=== PATIENT | female | born 1950 | race Caucasian/White ===

== ENCOUNTER → 2021-11-08 | Outpatient (CLI) | payer MEDICARE ==
[2021-11-08 22:52] LABS: ALT 7 U/L (8-44); AST 21 U/L (13-35); African American GFR (CKD) 57.6 (60.0-200.0); Albumin/Globulin Ratio 1.34 (1.60-3.17); Alkaline Phosphatase 93 U/L (41-126); BUN/Creat Ratio 21.34 Ratio (12.00-20.00); Blood Urea Nitrogen 23.9 mg/dL (9.0-27.0); Carbon Dioxide 23.4 mmol/L (20.0-27.5); Chloride 106 mmol/L (96-109); Glucose 97 mg/dL (70-110); Non-African American GFR(CKD) 49.7 (60.0-200.0); Potassium 4.5 mmol/L (3.5-5.5); Sodium 140 mmol/L (135-145); Total Bilirubin <0.15 mg/dL (0.30-1.20)
== END | disposition home or self-care (01) ==
LOC: LABWHC1 09:24
PROVIDERS: ATTEND Internal Medicine Interventional Cardiology
DX: I10 Essential (primary) hypertension (principal)
CPT/HCPCS: 36415; 80053

== ENCOUNTER 2022-02-06 14:24 | Inpatient (IN) | payer MEDICARE, OTHER ==
--- NOTE | 2022-02-06 16:11 | ED ---
General Adult HPI - General Chief complaint: Recheck/Abnormal Lab/Rx Stated complaint: Irregular labs-Sent by PCP Time Seen by Provider: 02/06/22 14:35 Source: patient, RN notes reviewed, old records reviewed Mode of arrival: ambulatory Limitations: no limitations - History of Present Illness Initial comments: 71-year-old female presenting with abnormal outpatient lab. Patient was found by primary care physician to have a hemoglobin of 6.2. She states she has dealt with some anemia in the past. She denies bright red rectal bleeding or melena. She states she had one episode of diarrhea yesterday. She is not currently on any antiplatelet or anticoagulation medications. She states she does have some mild exertional dyspnea and states that she fatigues easily. She has required blood transfusion in the past. - Related Data Home Medications Medication Instructions Recorded Confirmed Aspirin EC [Ecotrin Low Dose] 81 mg PO HS 02/06/22 02/06/22 Ferrous Sulfate [Feosol] 162.5 mg PO SUTUTHSA@2100 02/06/22 02/06/22 Fluticasone Nasal [place] [Flonase 1 - 2 spr EA NOSTRIL BID PRN 02/06/22 02/06/22 Nasal [place]] Pantoprazole Sodium [Protonix] 40 mg PO HS PRN 02/06/22 02/06/22 Rosuvastatin Calcium [Crestor] 5 mg PO HS 02/06/22 02/06/22 Spironolactone [Aldactone] 12.5 mg PO MOWEFR 02/06/22 02/06/22 Valsartan [Diovan] 40 mg PO BID 02/06/22 02/06/22 carvediloL [Coreg] 6.25 mg PO BID 02/06/22 02/06/22 Allergies Allergy/AdvReac Type Severity Reaction Status Date / Time lorazepam [From Ativan] Allergy Anaphylaxis Verified 02/06/22 16:16 Review of Systems ROS Statement: Those systems with pertinent positive or pertinent negative responses have been documented in the HPI. ROS Other: All systems not noted in ROS Statement are negative. Past Medical History Past Medical History: Coronary Artery Disease (CAD), Hypertension Additional Past Medical History / Comment(s): Anemia History of Any Multi-Drug Resistant Organisms: None Reported Additional Past Surgical History / Comment(s): Dual Pacemaker Past Psychological History: No Psychological Hx Reported Smoking Status: Never smoker Past Alcohol Use History: Occasional Past Drug Use History: None Reported General Exam Limitations: no limitations General appearance: alert, in no apparent distress Head exam: Present: atraumatic, normocephalic Eye exam: Present: normal appearance, PERRL ENT exam: Present: normal exam Neck exam: Present: normal inspection. Absent: tenderness, meningismus Respiratory exam: Present: normal lung sounds bilaterally. Absent: respiratory distress, wheezes Cardiovascular Exam: Present: regular rate, normal rhythm GI/Abdominal exam: Present: soft. Absent: distended, tenderness, guarding Extremities exam: Present: normal inspection, normal capillary refill. Absent: pedal edema Neurological exam: Present: alert, oriented X3, CN II-XII intact. Absent: motor sensory deficit Psychiatric exam: Present: normal affect, normal mood Skin exam: Present: warm, pallor Course Vital Signs 02/06/22 14:28 Temperature 97.6 F Pulse Rate 91 Respiratory 20 Rate Blood Pressure 149/67 O2 Sat by Pulse 97 Oximetry - Reevaluation(s) Reevaluation #1: 02/06/22 17:30 Patient refuses rectal exam, denies bright red rectal bleeding or melena EKG Findings - EKG Comments: EKG Findings:: EKG: Ventricular paced rhythm rate of 83, with PVC NH interval is 167, QRS duration 99, QTC 419 Medical Decision Making - Medical Decision Making 71-year-old female with chief complaint of anemia found on outpatient lab testing. This was 6. The repeat is 5.0. 2 units for transfusion are ordered. Patient's hemodynamics are stable. She denies current anticoagulation. She denies rectal bleeding but also declines rectal exam. She will be observed overnight with repeat laboratory testing at 11 PM and 6 AM. Case discussed with [facility] physician group - Lab Data Result diagrams: 02/06/22 16:51 02/06/22 16:51 Lab Results 02/06/22 02/06/22 02/06/22 Range/Units 16:51 16:51 16:51 WBC 13.0 H (3.8-10.6) k/uL RBC 2.14 L (3.80-5.40) m/uL Hgb 5.0 L* (11.4-16.0) gm/dL Hct 17.2 L* (34.0-46.0) % MCV 80.5 (80.0-100.0) fL MCH 23.4 L (25.0-35.0) pg MCHC 29.1 L (31.0-37.0) g/dL RDW 16.6 H (11.5-15.5) % Plt Count 283 (150-450) k/uL MPV 7.7 Neutrophils % 83 % Lymphocytes % 12 % Monocytes % 3 % Eosinophils % 0 % Basophils % 0 % Neutrophils # 10.8 H (1.3-7.7) k/uL Lymphocytes # 1.6 (1.0-4.8) k/uL Monocytes # 0.4 (0-1.0) k/uL Eosinophils # 0.0 (0-0.7) k/uL Basophils # 0.0 (0-0.2) k/uL Hypochromasia Marked Anisocytosis Slight PT 10.5 (9.0-12.0) sec INR 1.0 (<1.2) APTT 20.5 L (22.0-30.0) sec Sodium 137 (137-145) mmol/L Potassium 4.6 (3.5-5.1) mmol/L Chloride 103 (98-107) mmol/L Carbon Dioxide 22 (22-30) mmol/L Anion Gap 12 mmol/L BUN 56 H (7-17) mg/dL Creatinine 1.43 H (0.52-1.04) mg/dL Est GFR (CKD-EPI)AfAm 43 (>60 ml/min/1.73 sqM) Est GFR (CKD-EPI)NonAf 37 (>60 ml/min/1.73 sqM) Glucose 110 H (74-99) mg/dL Calcium 9.7 (8.4-10.2) mg/dL Magnesium 2.0 (1.6-2.3) mg/dL Total Bilirubin 0.2 (0.2-1.3) mg/dL AST 27 (14-36) U/L ALT 10 (4-34) U/L Alkaline Phosphatase 72 (38-126) U/L Total Protein 6.7 (6.3-8.2) g/dL Albumin 4.0 (3.5-5.0) g/dL Blood Type Recheck Bld Type Recheck Status Spec Expiration Date 02/06/22 Range/Units 17:13 WBC (3.8-10.6) k/uL RBC (3.80-5.40) m/uL Hgb (11.4-16.0) gm/dL Hct (34.0-46.0) % MCV (80.0-100.0) fL MCH (25.0-35.0) pg MCHC (31.0-37.0) g/dL RDW (11.5-15.5) % Plt Count (150-450) k/uL MPV Neutrophils % % Lymphocytes % % Monocytes % % Eosinophils % % Basophils % % Neutrophils # (1.3-7.7) k/uL Lymphocytes # (1.0-4.8) k/uL Monocytes # (0-1.0) k/uL Eosinophils # (0-0.7) k/uL Basophils # (0-0.2) k/uL Hypochromasia Anisocytosis PT (9.0-12.0) sec INR (<1.2) APTT (22.0-30.0) sec Sodium (137-145) mmol/L Potassium (3.5-5.1) mmol/L Chloride (98-107) mmol/L Carbon Dioxide (22-30) mmol/L Anion Gap mmol/L BUN (7-17) mg/dL Creatinine (0.52-1.04) mg/dL Est GFR (CKD-EPI)AfAm (>60 ml/min/1.73 sqM) Est GFR (CKD-EPI)NonAf (>60 ml/min/1.73 sqM) Glucose (74-99) mg/dL Calcium (8.4-10.2) mg/dL Magnesium (1.6-2.3) mg/dL Total Bilirubin (0.2-1.3) mg/dL AST (14-36) U/L ALT (4-34) U/L Alkaline Phosphatase (38-126) U/L Total Protein (6.3-8.2) g/dL Albumin (3.5-5.0) g/dL Blood Type Recheck No Previous Record Bld Type Recheck Status CABO Indicated Spec Expiration Date 02/09/20222312 Critical Care Time Critical Care Time: Yes Total Critical Care Time: 35 Disposition Clinical Impression: Symptomatic anemia Disposition: ADMITTED IP TO THIS [facility] Condition: Stable Is patient prescribed a controlled substance at d/c from ED?: No Referrals: Alber Amor MD [Primary Care Provider] - 1-2 days Time of Disposition: 17:32
[2022-02-06 16:58] LABS: Anisocytosis Slight; Basophils % (A) 0 %; Eosinophils % (A) 0 %; Hypochromasia Marked; Lymphocytes # (A) 1.6 k/uL (1.0-4.8); Lymphocytes % (A) 12 %; MCH 23.4 pg (25.0-35.0); MCHC 29.1 g/dL (31.0-37.0); MCV 80.5 fL (80.0-100.0); Mean Platelet Volume 7.7; Monocytes # (A) 0.4 k/uL (0-1.0); Monocytes % (A) 3 %; Neutrophils # (A) 10.8 k/uL (1.3-7.7); Neutrophils % (A) 83 %; Platelet Count 283 k/uL (150-450); RBC 2.14 m/uL (3.80-5.40); RDW 16.6 % (11.5-15.5)
[2022-02-06 17:06] LABS: Calcium 9.7 mg/dL (8.4-10.2); HCT 17.2 % (34.0-46.0); Potassium 4.6 mmol/L (3.5-5.1); Total Bilirubin 0.2 mg/dL (0.2-1.3); Total Protein 6.7 g/dL (6.3-8.2)
[2022-02-06 17:12] LABS: Prothrombin Time 10.5 sec (9.0-12.0)
[2022-02-06 17:14] LABS: Partial Thromboplastin Time 20.5 sec (22.0-30.0)
[2022-02-06] MEDS ORDERED: ACETAMINOPHEN TAB 325 MG TAB PO PRN (17:29)
[2022-02-06] MEDS ORDERED: NALOXONE 0.4 MG/ML 1 ML VIAL IV PRN (17:29)
[2022-02-07] MEDS ORDERED: PANTOPRAZOLE 40 MG/10 ML VIAL IVP ONE (03:04)
--- NOTE | 2022-02-07 03:08 | P.HPIM ---
History of Present Illness H&P Date: 02/06/22 The patient is a 71-year-old female with a PMH of diverticulosis, status post AICD placement (unknown reason) hypertension, and hyperlipidemia who was sent to the emergency room after laboratory evaluation revealed a hemoglobin of 6.2. History supplemented by the patient's daughter at the bedside. The patient reports that March 2021, she was hospitalized at [facility] for severe anemia which was diagnosed during a preop evaluation for an AICD placement. The patient had subsequently undergone an EGD and colonoscopy with no source of bleeding identified. The patient has since been following up with GI and reports that she had another routine set of blood work this past Wednesday, for which she was informed that her hemoglobin was 6.2. The patient denied noticing bright red blood per rectum or black tarry stools. She also denied abdominal pain, nausea, vomiting. Reports that she feels that her baseline and denied experiencing weakness or fatigue. Patient reports taking oral iron for possible iron deficiency. She reports that the prior colonoscopy did reveal diverticulosis which was suspected to be the likely culprit. Patient denied using NSAIDs. She denied experiencing chest discomfort or shortness of breath. She reports feeling at her baseline at the time of interview. Laboratory evaluation in the emergency room was remarkable for hemoglobin of 5.0, MCV 80.5, [place] count 13.0, BUN 56, and creatinine 1.43. Review of systems: Pertinent positives and negatives as discussed in HPI, a complete review of systems was performed and all other systems are negative. Physical examination: General: non toxic, no distress, appears at stated age, normal weight Derm: no unusual rashes/lesions, warm Head: atraumatic, normocephalic, symmetric Eyes: EOMI, no lid lag, anicteric sclera, pupils equal round reactive to light ENT: Nose and ears atraumatic Neck: No cervical lymphadenopathy, trachea midline, supple Mouth: no lip lesion, mucus membranes moist Cardiovascular: S1S2 reg, no murmur, positive dorsalis pedis pulse bilateral, no edema Lungs: CTA bilateral, no rhonchi, no rales, no accessory muscle use Abdominal: soft, nontender to palpation, no guarding Ext: muscle strength 5 out of 5 in all 4 extremities grossly, no gross muscle atrophy, no contractures, Neuro: CN II-XI grossly intact, no gross focal neuro deficits Psych: Alert, oriented, appropriate affect Assessment/plan Severe anemia, suspected acute blood loss -Status post 2 units of PRBC cessation -FOBT ordered -Continue to monitor CBC -Surgery consulted for EGD/colonoscopy -Continue IV Protonix Kidney injury, acute versus chronic -Continue IV fluids and monitor for now Chronic conditions: Hypertension, hyperlipidemia -Hold off on antihypertensives in setting of borderline BP -Continue the remaining home medications DVT prophylaxis -IPCDs The patient is admitted with an anticipated greater than 2 midnight stay for evaluation of GIB CODE STATUS: Full Code Discussed with: Patient Anticipated discharge date: 2-[address]: Home Past Medical History Past Medical History: Coronary Artery Disease (CAD), Hypertension Additional Past Medical History / Comment(s): Anemia History of Any Multi-Drug Resistant Organisms: None Reported Additional Past Surgical History / Comment(s): Dual Pacemaker Past Psychological History: No Psychological Hx Reported Smoking Status: Never smoker Past Alcohol Use History: Occasional Past Drug Use History: None Reported - Past Family History Mother Family Medical History: Hypertension Medications and Allergies Home Medications Medication Instructions Recorded Confirmed Type Aspirin EC [Ecotrin Low Dose] 81 mg PO HS 02/06/22 02/06/22 History Ferrous Sulfate [Feosol] 162.5 mg PO SUTUTHSA@2100 02/06/22 02/06/22 History Fluticasone Nasal [place] [Flonase 1 - 2 spr EA NOSTRIL BID PRN 02/06/22 02/06/22 History Nasal [place]] Pantoprazole Sodium [Protonix] 40 mg PO HS PRN 02/06/22 02/06/22 History Rosuvastatin Calcium [Crestor] 5 mg PO HS 02/06/22 02/06/22 History Spironolactone [Aldactone] 12.5 mg PO MOWEFR 02/06/22 02/06/22 History Valsartan [Diovan] 40 mg PO BID 02/06/22 02/06/22 History carvediloL [Coreg] 6.25 mg PO BID 02/06/22 02/06/22 History Allergies Allergy/AdvReac Type Severity Reaction Status Date / Time lorazepam [From Ativan] Allergy Anaphylaxis Verified 02/06/22 16:16 Physical Exam Vitals: Vital Signs Temp Pulse Resp BP Pulse Ox 02/06/22 23:00 87.3 F L 85 16 174/80 99 08/12/22 22:45 98.5 F 81 16 179/75 99 02/06/22 21:10 98.9 F 78 16 157/55 99 02/06/22 20:05 98.6 F 89 18 134/49 97 02/06/22 19:35 98.5 F 82 16 132/65 98 02/06/22 19:20 98.8 F 87 18 163/66 97 02/06/22 19:05 98.6 F 89 16 153/58 99 02/06/22 18:45 98.7 F 79 16 154/70 02/06/22 18:35 98.3 F 77 18 177/63 98 02/06/22 14:28 97.6 F 91 20 149/67 97 Intake and Output 02/06/22 02/06/22 02/07/22 14:59 22:59 06:59 Intake Total 310 Balance 310 Intake: Blood Product 310 Rc As-1 Unit 0 [id number] Rc As-1 Unit 310 [id number] Other: Weight 47.627 kg Results CBC & Chem 7: 02/06/22 16:51 02/06/22 16:51 Labs: Abnormal Lab Results - Last 24 Hours (Table) 02/06/22 02/06/22 02/06/22 Range/Units 16:51 16:51 16:51 WBC 13.0 H (3.8-10.6) k/uL RBC 2.14 L (3.80-5.40) m/uL Hgb 5.0 L* (11.4-16.0) gm/dL Hct 17.2 L* (34.0-46.0) % MCH 23.4 L (25.0-35.0) pg MCHC 29.1 L (31.0-37.0) g/dL RDW 16.6 H (11.5-15.5) % Neutrophils # 10.8 H (1.3-7.7) k/uL APTT 20.5 L (22.0-30.0) sec BUN 56 H (7-17) mg/dL Creatinine 1.43 H (0.52-1.04) mg/dL Glucose 110 H (74-99) mg/dL Crossmatch 02/06/22 Range/Units 17:13 WBC (3.8-10.6) k/uL RBC (3.80-5.40) m/uL Hgb (11.4-16.0) gm/dL Hct (34.0-46.0) % MCH (25.0-35.0) pg MCHC (31.0-37.0) g/dL RDW (11.5-15.5) % Neutrophils # (1.3-7.7) k/uL APTT (22.0-30.0) sec BUN (7-17) mg/dL Creatinine (0.52-1.04) mg/dL Glucose (74-99) mg/dL Crossmatch See Detail
[2022-02-07 04:32] LABS: African American GFR (CKD) 50 (>60 ml/min/1.73 sqM); Anion Gap 10 mmol/L; Blood Urea Nitrogen 47 mg/dL (7-17); Calcium 9.1 mg/dL (8.4-10.2); Carbon Dioxide 22 mmol/L (22-30); Chloride 107 mmol/L (98-107); Glucose 91 mg/dL (74-99); Non-African American GFR(CKD) 43 (>60 ml/min/1.73 sqM); Potassium 4.4 mmol/L (3.5-5.1); Sodium 139 mmol/L (137-145)
[2022-02-07 07:03] LABS: Anisocytosis Slight; Basophils % (A) 0 %; Eosinophils # (A) 0.2 k/uL (0-0.7); Eosinophils % (A) 2 %; HCT 28.9 % (34.0-46.0); Hypochromasia Marked; Lymphocytes # (A) 1.2 k/uL (1.0-4.8); Lymphocytes % (A) 11 %; MCH 27.1 pg (25.0-35.0); MCHC 31.9 g/dL (31.0-37.0); MCV 85.1 fL (80.0-100.0); Mean Platelet Volume 8.2; Monocytes # (A) 0.6 k/uL (0-1.0); Monocytes % (A) 5 %; Neutrophils # (A) 9.3 k/uL (1.3-7.7); Neutrophils % (A) 82 %; Platelet Count 203 k/uL (150-450); Poikilocytosis Moderate; RDW 16.3 % (11.5-15.5); WBC 11.5 k/uL (3.8-10.6)
[2022-02-07 07:12] LABS: HGB 9.2 gm/dL (11.4-16.0)
[2022-02-07] MEDS: SODIUM CHLORIDE 0.9% 1,000 ML IV SCH ×2 (08:00→15:13)
[2022-02-07] MEDS: carvediloL 6.25 MG TAB PO SCH ×2 (08:25→20:19)
--- NOTE | 2022-02-07 13:10 | P.PN ---
Progress Note - Text Progress Note Date: 02/07/22 Patient was seen and examined. No acute events overnight. Hemoglobin improved from 5-9.2 units PRBC. Patient denies any chest shortness breath or palpitations. No nausea or vomiting. No fever or chills. General: [non toxic], [no distress], [appears at stated age] Derm: [warm], [dry] Head: [atraumatic], [normocephalic], [symmetric] Eyes: [EOMI], [no lid lag], [anicteric sclera] Mouth: [no lip lesion], [mucus membranes moist] Cardiovascular: [S1S2 reg], [no murmur] Lungs: [CTA bilateral], [no rhonchi, no rales] , [no accessory muscle use] Ext: [no gross muscle atrophy], [no edema], [no contractures] Neuro: [no focal neuro deficits] Psych: [Alert], [oriented], [appropriate affect] #Severe anemia, normocytic #Leukocytosis #Acute kidney injury Chronic conditions: Hypertension, dyslipidemia Patient's hemoglobin has improved after 2 units PRBC. We'll order iron studies, B12 and folic acid. She had recently had EGD and colonoscopy which was negative for acute bleed. Gen. surgery has been consulted. Stool for occult blood ordered. Will consult hematology for further recommendations. Leukocytosis of unknown origin. Plans to repeat CBC tomorrow morning. No signs of active infection. Continue IV hydration with normal sinus 75 mL per hour. Avoid nephrotoxins. Repeat BMP tomorrow morning. Continue Coreg. Continue Lipitor. DVT prophylaxis: [SCD boots] Discussed with: [Patient and family] Anticipated discharge: [1-2 days] Anticipated discharge place: [Home] Anticipated DC home tomorrow if hemoglobin remained stable. Since GI workup unrevealing, patient would need bone marrow biopsy in the future if willing to evaluate for anemia.
[2022-02-07 14:33] LABS: Reticulocyte % 2.5 % (0.5-2.0)
[2022-02-07 15:58] LABS: LDH 799 U/L (313-618)
--- NOTE | 2022-02-07 16:11 | P.GSCN ---
History of Present Illness Consult date: 02/07/22 History of present illness: REASON FOR CONSULTATION: Anemia HISTORY OF PRESENT ILLNESS: The patient is a 71 year old female who presented to the hospital with anemia hemoglobin 5.0. Patient was given 2 units blood transfusion. Patient's daughter bedside gives additional history. Her daughter describes that her mother had similar episode 8 months ago at a different hospital. The patient was in the intensive care unit and intubated at that time. She had unexplained anemia and was given blood transfusions. Her daughter also reports that patient had a colonoscopy EGD and additional workup which were negative. Once discharged, the patient was being monitored by her primary care doctor as her hemoglobin had improved to over 11.0. Patient had recently seen her vice president payer and was given a clean bill of health less than 1 month ago. Patient had followed up with her primary care provider who repeated her blood work where hemoglobin was less than 7.0. She presented to the hospital for recheck where hemoglobin was 5.0. As a result, patient was admitte d and given blood. Patient otherwise is independent. Denies any abdominal pain. Denies any blood in stools. Denies any hematemesis or signs of bleeding. Patient and her daughters have recently moved to the area. General surgery is consulted for anemia. PAST MEDICAL HISTORY: See list and reviewed PAST SURGICAL HISTORY: See list and reviewed MEDICATIONS: See list and reviewed ALLERGIES: See list and reviewed SOCIAL HISTORY: See list and reviewed FAMILY HISTORY: See list and reviewed REVIEW OF ORGAN SYSTEMS: CONSTITUTIONAL: No fevers or chills. No recent weight loss. EYES: Denies any trouble with vision. No glasses. HEENT: No difficulties with hearing. No nosebleeds. No difficulty swallowing. Has lower dentures. RESPIRATORY: Has chronic obstructive pulmonary disease. CARDIOVASCULAR: Has hypertensive heart disease. Has hyperlipidemia. Has coronary artery disease. History of myocardial infarction. Recent pacemaker placement less than 1 year ago. GASTROINTESTINAL: Has anemia of unexplained origin. Has gastroesophageal reflux disease. GENITOURINARY: Denies any blood in urine or increased urinary frequency. NEUROLOGICAL: Recent stroke less than 1 year ago with subsequent hospitalization and intubation. MUSCULOSKELETAL: Denies any back pain, stiffness or joint arthritis. SKIN: History of melanoma. PSYCHIATRIC: Denies current depression or suicidal thoughts. ENDOCRINE: Denies current thyroid disorders. Denies any blood sugar glucose intolerance. HEME/LYMPHATIC: Denies any lumps and bumps around the neck. No recent deep venous thrombosis. Prior blood transfusions. ALLERGY/IMMUNOLOGY: No immunoglobulin therapy. No immune deficiencies. BREAST: Denies current breast lumps, pain or nipple discharge. PHYSICAL EXAM: VITALS: Reviewed CONSTITUTIONAL: Well developed and in no acute distress. EYES: Conjuctivae without sclera icterus. Extraocular movements grossly intact. HEAD, EARS, NOSE, THROAT: Moist buccal mucosa. Head is atraumatic, normocep halic. Hears conversational speech. No nasal drainage. NECK: Supple. No JV distention. No thyroidomegaly. RESPIRATORY: Non-labored respirations and equal bilateral excursions. No gross wheezes. CARDIOVASCULAR: Palpable 2+ radial pulses. ABDOMEN: Nontender. LYMPH: No gross neck lymphadenopathy. MUSCULOSKELETAL: Nail and fingers with good capillary refill. SKIN: Warm and well perfused with good skin turgor. NEUROLOGIC: Cranial nerves II through XII grossly intact. No focal or lateralizing signs. PSYCH: Appropriate affect. Alert and oriented to person, place and time. Displays appropriate insight. CLINCAL LABS: Reviewed. Hemoglobin on admission 5.0 up to 9.2 after 2 units blood transfusion. WBC elevated at 13.2 on admission. Creatinine elevated 1.43 down to 1.23. No current imaging her radiology reports available. ASSESSMENT: 1. Anemia of unexplained origin 2. Status post blood transfusion 3. Pacemaker placement 4. Ischemic cardiomyopathy 5. History of recent stroke 6. Hypertensive heart disease or chronic renal insufficiency, stage III 7. Leukocytosis 8. Iron deficiency anemia PLAN: 1. Patient has recurrent moderate anemia requiring blood transfusions of unexplained etiology. At this time, patient does not wish any invasive diagnostic studies. In the interim, recommend CT of the abdomen and pelvis for malignancy or cause of anemia. 2. May need repeat upper and lower endoscopy due to recurrence of her anemia. 3. Hematology consult pending. 4. Diet as tolerated. 5. May need release of medical records from prior hospitalization 6. Overall, patient presents with life-threatening anemia of unclear etiology and will need further workup. ADVANCE DIRECTIVE: Thank you for this kind consultation. Past Medical History Past Medical History: Coronary Artery Disease (CAD), Cancer, COPD, CVA/TIA, Hype rtension, Myocardial Infarction (CT) Additional Past Medical History / Comment(s): Anemia, Orthostatic Hypotension, Hx Melanoma, Small kidney size Last Myocardial Infarction Date:: 06/28/2016 History of Any Multi-Drug Resistant Organisms: None Reported Past Surgical History: Cholecystectomy, Hysterectomy Additional Past Surgical History / Comment(s): Dual Pacemaker, two child births, eyelid surgery, mole removal on back Past Anesthesia/Blood Transfusion Reactions: No Reported Reaction Past Psychological History: No Psychological Hx Reported Smoking Status: Former smoker Past Alcohol Use History: Occasional Past Drug Use History: None Reported - Past Family History Mother Family Medical History: Hypertension Additional Family Medical History / Comment(s): patient adopted and does not know medical hx Medications and Allergies Home Medications Medication Instructions Recorded Confirmed Type Aspirin EC [Ecotrin Low Dose] 81 mg PO HS 02/06/22 02/06/22 History Ferrous Sulfate [Feosol] 162.5 mg PO SUTUTHSA@2100 02/06/22 02/06/22 History Fluticasone Nasal [place] [Flonase 1 - 2 spr EA NOSTRIL BID PRN 02/06/22 02/06/22 History Nasal [place]] Pantoprazole Sodium [Protonix] 40 mg PO HS PRN 02/06/22 02/06/22 History Rosuvastatin Calcium [Crestor] 5 mg PO HS 02/06/22 02/06/22 History Spironolactone [Aldactone] 12.5 mg PO MOWEFR 02/06/22 02/06/22 History Valsartan [Diovan] 40 mg PO BID 02/06/22 02/06/22 History carvediloL [Coreg] 6.25 mg PO BID 02/06/22 02/06/22 History Allergies Allergy/AdvReac Type Severity Reaction Status Date / Time lorazepam [From Ativan] Allergy Anaphylaxis Verified 02/06/22 16:16 Surgical - Exam Vital Signs Temp Pulse Resp BP Pulse Ox 97.6 F 91 20 149/67 97 02/06/22 14:28 02/06/22 14:28 02/06/22 14:28 02/06/22 14:28 02/06/22 14:28 Results - Labs 02/07/22 06:32 02/07/22 04:00 Abnormal Lab Results - Last 24 Hours (Table) 02/06/22 02/06/22 02/06/22 Range/Units 16:51 16:51 16:51 WBC 13.0 H (3.8-10.6) k/uL RBC 2.14 L (3.80-5.40) m/uL Hgb 5.0 L* (11.4-16.0) gm/dL Hct 17.2 L* (34.0-46.0) % MCH 23.4 L (25.0-35.0) pg MCHC 29.1 L (31.0-37.0) g/dL RDW 16.6 H (11.5-15.5) % Neutrophils # 10.8 H (1.3-7.7) k/uL Retic Count (0.5-2.0) % APTT 20.5 L (22.0-30.0) sec BUN 56 H (7-17) mg/dL Creatinine 1.43 H (0.52-1.04) mg/dL Glucose 110 H (74-99) mg/dL Lactate Dehydrogenase (313-618) U/L Crossmatch 02/06/22 02/07/22 02/07/22 Range/Units 17:13 04:00 06:32 WBC 11.5 H (3.8-10.6) k/uL RBC 3.40 L (3.80-5.40) m/uL Hgb 9.2 L D (11.4-16.0) gm/dL Hct 28.9 L (34.0-46.0) % MCH (25.0-35.0) pg MCHC (31.0-37.0) g/dL RDW 16.3 H (11.5-15.5) % Neutrophils # 9.3 H (1.3-7.7) k/uL Retic Count (0.5-2.0) % APTT (22.0-30.0) sec BUN 47 H (7-17) mg/dL Creatinine 1.26 H (0.52-1.04) mg/dL Glucose (74-99) mg/dL Lactate Dehydrogenase (313-618) U/L Crossmatch See Detail 02/07/22 02/07/22 Range/Units 14:02 14:02 WBC (3.8-10.6) k/uL RBC (3.80-5.40) m/uL Hgb (11.4-16.0) gm/dL Hct (34.0-46.0) % MCH (25.0-35.0) pg MCHC (31.0-37.0) g/dL RDW (11.5-15.5) % Neutrophils # (1.3-7.7) k/uL Retic Count 2.5 H (0.5-2.0) % APTT (22.0-30.0) sec BUN (7-17) mg/dL Creatinine (0.52-1.04) mg/dL Glucose (74-99) mg/dL Lactate Dehydrogenase 799 H (313-618) U/L Crossmatch Diabetes panel 02/06/22 02/07/22 Range/Units 16:51 04:00 Sodium 137 139 (137-145) mmol/L Potassium 4.6 4.4 (3.5-5.1) mmol/L Chloride 103 107 (98-107) mmol/L Carbon Dioxide 22 22 (22-30) mmol/L BUN 56 H 47 H (7-17) mg/dL Creatinine 1.43 H 1.26 H (0.52-1.04) mg/dL Glucose 110 H 91 (74-99) mg/dL Calcium 9.7 9.1 (8.4-10.2) mg/dL AST 27 (14-36) U/L ALT 10 (4-34) U/L Alkaline Phosphatase 72 (38-126) U/L Total Protein 6.7 (6.3-8.2) g/dL Albumin 4.0 (3.5-5.0) g/dL Thyroid panel 02/07/22 Range/Units 14:02 TSH 2.670 (0.465-4.680) mIU/L Calcium panel 02/06/22 02/07/22 Range/Units 16:51 04:00 Calcium 9.7 9.1 (8.4-10.2) mg/dL Albumin 4.0 (3.5-5.0) g/dL Pituitary panel 02/06/22 02/07/22 02/07/22 Range/Units 16:51 04:00 14:02 Sodium 137 139 (137-145) mmol/L Potassium 4.6 4.4 (3.5-5.1) mmol/L Chloride 103 107 (98-107) mmol/L Carbon Dioxide 22 22 (22-30) mmol/L BUN 56 H 47 H (7-17) mg/dL Creatinine 1.43 H 1.26 H (0.52-1.04) mg/dL Glucose 110 H 91 (74-99) mg/dL Calcium 9.7 9.1 (8.4-10.2) mg/dL TSH 2.670 (0.465-4.680) mIU/L Adrenal panel 02/06/22 02/07/22 Range/Units 16:51 04:00 Sodium 137 139 (137-145) mmol/L Potassium 4.6 4.4 (3.5-5.1) mmol/L Chloride 103 107 (98-107) mmol/L Carbon Dioxide 22 22 (22-30) mmol/L BUN 56 H 47 H (7-17) mg/dL Creatinine 1.43 H 1.26 H (0.52-1.04) mg/dL Glucose 110 H 91 (74-99) mg/dL Calcium 9.7 9.1 (8.4-10.2) mg/dL Total Bilirubin 0.2 (0.2-1.3) mg/dL AST 27 (14-36) U/L ALT 10 (4-34) U/L Alkaline Phosphatase 72 (38-126) U/L Total Protein 6.7 (6.3-8.2) g/dL Albumin 4.0 (3.5-5.0) g/dL
--- NOTE | 2022-02-07 17:04 | P.CONS ---
History of Present Illness - Reason for Consult Consult date: 02/07/22 Anemia Requesting physician: Colette Vargas - History of Present Illness We have been asked to further evaluate this patient for severe normocytic anemia, she presented with hemoglobin in 5s and after 2 transfusions increased to 9.2. There is no obvious bleeding, no prior labs to trend, Full GI evaluation recently without evidence to explain acute blood loss. Patient also has significant leukocytosis, An infectious work-up has not been ordered, this maybe a consideration along with this and abdominal imaging. Review of Systems All systems: negative Constitutional: Reports as per HPI Past Medical History Past Medical History: Coronary Artery Disease (CAD), Cancer, COPD, CVA/TIA, Hy pertension, Myocardial Infarction ([place]) Additional Past Medical History / Comment(s): Anemia, Orthostatic Hypotension, Hx Melanoma, Small kidney size Last Myocardial Infarction Date:: 06/28/2016 History of Any Multi-Drug Resistant Organisms: None Reported Past Surgical History: Cholecystectomy, Hysterectomy Additional Past Surgical History / Comment(s): Dual Pacemaker, two child births, eyelid surgery, mole removal on back Past Anesthesia/Blood Transfusion Reactions: No Reported Reaction Past Psychological History: No Psychological Hx Reported Smoking Status: Former smoker Past Alcohol Use History: Occasional Past Drug Use History: None Reported - Past Family History Mother Family Medical History: Hypertension Additional Family Medical History / Comment(s): patient adopted and does not know medical hx Medications and Allergies Home Medications Medication Instructions Recorded Confirmed Type Aspirin EC [Ecotrin Low Dose] 81 mg PO HS 02/06/22 02/06/22 History Ferrous Sulfate [Feosol] 162.5 mg PO SUTUTHSA@2100 02/06/22 02/06/22 History Fluticasone Nasal [place] [Flonase 1 - 2 spr EA NOSTRIL BID PRN 02/06/22 02/06/22 History Nasal [place]] Pantoprazole Sodium [Protonix] 40 mg PO HS PRN 02/06/22 02/06/22 History Rosuvastatin Calcium [Crestor] 5 mg PO HS 02/06/22 02/06/22 History Spironolactone [Aldactone] 12.5 mg PO MOWEFR 02/06/22 02/06/22 History Valsartan [Diovan] 40 mg PO BID 02/06/22 02/06/22 History carvediloL [Coreg] 6.25 mg PO BID 02/06/22 02/06/22 History Allergies Allergy/AdvReac Type Severity Reaction Status Date / Time lorazepam [From Ativan] Allergy Anaphylaxis Verified 02/06/22 16:16 Physical Exam Vitals: Vital Signs Temp Pulse Pulse Resp BP BP Pulse Ox 02/07/22 13:21 98.0 F 67 18 158/68 97 02/07/22 12:20 97.8 F 62 18 164/84 99 02/07/22 10:28 97.5 F L 60 18 166/83 99 02/07/22 06:46 98.9 F 69 16 178/76 97 02/07/22 02:25 98.1 F 68 16 148/86 98 02/06/22 23:45 98.1 F 72 16 179/94 98 02/06/22 23:30 98.3 F 70 16 142/80 98 02/06/22 23:15 98.2 F 70 16 157/68 98 02/06/22 23:00 87.3 F L 85 16 174/80 99 02/06/22 22:45 98.5 F 81 16 179/75 99 02/06/22 21:10 98.9 F 78 16 157/55 99 02/06/22 20:05 98.6 F 89 18 134/49 97 02/06/22 19:35 98.5 F 82 16 132/65 98 02/06/22 19:20 98.8 F 87 18 163/66 97 02/06/22 19:05 98.6 F 89 16 153/58 99 02/06/22 18:45 98.7 F 79 16 154/70 02/06/22 18:35 98.3 F 77 18 177/63 98 02/06/22 14:28 97.6 F 91 20 149/67 97 Intake and Output 02/06/22 02/07/22 02/07/22 22:59 06:59 14:59 Intake Total 310 310 Balance 310 310 Intake: Blood Product 310 310 Rc As-1 Unit 0 310 [id number] Rc As-1 Unit 310 [id number] Other: Weight 47.627 kg - Constitutional General appearance: cooperative - EENT Eyes: EOMI ENT: NA/AT - Neck Neck: normal ROM - Respiratory Respiratory: bilateral: diminished - Cardiovascular Rhythm: regularly irregular - Gastrointestinal General gastrointestinal: soft - Integumentary Integumentary: pale - Neurologic Neurologic: CNII-XII intact - Musculoskeletal Musculoskeletal: generalized weakness - Psychiatric Psychiatric: A&O x's 3 Results CBC & Chem 7: 02/07/22 06:32 02/07/22 04:00 Labs: Abnormal Lab Results - Last 24 Hours (Table) 02/06/22 02/06/22 02/06/22 Range/Units 16:51 16:51 16:51 WBC 13.0 H (3.8-10.6) k/uL RBC 2.14 L (3.80-5.40) m/uL Hgb 5.0 L* (11.4-16.0) gm/dL Hct 17.2 L* (34.0-46.0) % MCH 23.4 L (25.0-35.0) pg MCHC 29.1 L (31.0-37.0) g/dL RDW 16.6 H (11.5-15.5) % Neutrophils # 10.8 H (1.3-7.7) k/uL APTT 20.5 L (22.0-30.0) sec BUN 56 H (7-17) mg/dL Creatinine 1.43 H (0.52-1.04) mg/dL Glucose 110 H (74-99) mg/dL Crossmatch 02/06/22 02/07/22 02/07/22 Range/Units 17:13 04:00 06:32 WBC 11.5 H (3.8-10.6) k/uL RBC 3.40 L (3.80-5.40) m/uL Hgb 9.2 L D (11.4-16.0) gm/dL Hct 28.9 L (34.0-46.0) % MCH (25.0-35.0) pg MCHC (31.0-37.0) g/dL RDW 16.3 H (11.5-15.5) % Neutrophils # 9.3 H (1.3-7.7) k/uL APTT (22.0-30.0) sec BUN 47 H (7-17) mg/dL Creatinine 1.26 H (0.52-1.04) mg/dL Glucose (74-99) mg/dL Crossmatch See Detail Assessment and Plan (1) Leukocytosis Current Visit: Yes Status: Acute Code(s): D72.829 - ELEVATED WHITE BLOOD CELL COUNT, UNSPECIFIED SNOMED Code(s): 034024532 (2) Normocytic anemia Narrative/Plan: - I have asked lab to please pull anemia work-up from admission labs for accuracy - If related to inflammatory /infectious etiology an infectious work-up is warranted. Current Visit: Yes Status: Acute Code(s): D64.9 - ANEMIA, UNSPECIFIED SNOMED Code(s): 776782349 Plan: There is no obvious bleeding, no prior labs to trend, Full GI evaluation recently without evidence to explain acute blood loss. Patient also has significant leukocytosis, An infectious work-up has not been ordered, possible consideration for this and abdominal imaging.
[2022-02-07 17:20] LABS: Erythrocyte Sedimentation Rate 17 mm/hr (0-20)
[2022-02-07] MEDS: IOPAMIDOL CONTRAST (ORAL USE) VIAL PO PRN ×2 (17:36→18:31)
[2022-02-07 19:14] LABS: % Iron Saturation 83.3 (12.00-45.00); Ferritin 74.9 ng/mL (10.0-291.0)
--- NOTE | 2022-02-07 19:47 | CT ---
EXAMINATION TYPE: CT abdomen pelvis wo con CT DLP: 322.3 mGycm, Automated exposure control for dose reduction was used. DATE OF EXAM: 02/07/2022 7:21 PM COMPARISON: None. CLINICAL INDICATION:Female, 71 years old with history of abdominal pain; abdominal pain TECHNIQUE: Axial CT of the abdomen and pelvis. Sagittal and coronal reformats were created on a [employer] workstation. Contrast used: None. Oral contrast used: with Oral Contrast FINDINGS: LOWER CHEST: Unremarkable ABDOMEN LIVER: Unremarkable GALLBLADDER AND BILE DUCTS: Surgically absent gallbladder. Bile ducts are normal in appearance. PANCREAS: Unremarkable. SPLEEN: Unremarkable. ADRENAL GLANDS: Unremarkable. KIDNEYS AND URETERS: No evidence of hydronephrosis or renal calculus. The ureters are unremarkable. PELVIS BLADDER: Unremarkable REPRODUCTIVE: Uterus is not visualized, presumed surgically absent. No suspicious adnexal lesions. ABDOMEN & PELVIS STOMACH AND BOWEL: Stomach and duodenum are unremarkable. Scattered diverticula are noted throughout the colon. No evidence of bowel obstruction. Appendix is not well visualized. PERITONEUM: No evidence of pneumoperitoneum or free fluid. VASCULATURE: Moderate atherosclerotic calcifications are present throughout the abdominal aorta and i ts branches. Ectasia of the infrarenal abdominal aorta measuring 2.7 cm in width (series 202, image 4 0). Aneurysmal dilation of the descending thoracic aorta measuring up to 3.2 cm in AP diameter (serie s 203, image 78). There is a broad-based outpouching (series 203, image 78) off the aortic lumen with peripheral calcifications. MUSCULOSKELETAL: No acute osseous abnormalities LYMPH NODES: No gross evidence for lymphadenopathy. SOFT TISSUE/ABDOMINAL WALL: Unremarkable IMPRESSION: 1. No acute intra-abdominal or intrapelvic process. 2. Aneurysmal dilatation of the descending thoracic aorta with peripherally calcified outpouching. Co mplete evaluation is limited given lack of intravenous contrast, suspected to represent a penetrating atherosclerotic ulcer versus other etiology. 3. Colonic diverticulosis.
[2022-02-07] MEDS: PANTOPRAZOLE 40 MG/10 ML VIAL IVP SCH (20:34)
[2022-02-07] MEDS ORDERED: ATORVASTATIN 10 MG TAB PO SCH (21:00)
[2022-02-07 23:24] LABS: Rheumatoid Factor, Qnt <10 IU/mL (0-15)
[2022-02-08] MEDS: SODIUM CHLORIDE 0.9% 1,000 ML IV SCH (07:53)
[2022-02-08] MEDS: PANTOPRAZOLE 40 MG/10 ML VIAL IVP SCH (07:53)
[2022-02-08 07:58] VITALS: BP 140/67; PULSE 68; RESP 17; TEMP 98.1
[2022-02-08] MEDS: carvediloL 6.25 MG TAB PO SCH (09:04)
[2022-02-08 10:33] LABS: Anisocytosis Slight; HCT 29.2 % (34.0-46.0); HGB 9.2 gm/dL (11.4-16.0); Hypochromasia Marked; MCH 26.7 pg (25.0-35.0); MCHC 31.4 g/dL (31.0-37.0); MCV 85.1 fL (80.0-100.0); Mean Platelet Volume 9.3; Platelet Count 190 k/uL (150-450); Poikilocytosis Moderate; RBC 3.43 m/uL (3.80-5.40); WBC 11.9 k/uL (3.8-10.6)
[2022-02-08 10:36] LABS: African American GFR (CKD) 52 (>60 ml/min/1.73 sqM); Anion Gap 7 mmol/L; Blood Urea Nitrogen 29 mg/dL (7-17); Calcium 8.6 mg/dL (8.4-10.2); Carbon Dioxide 23 mmol/L (22-30); Chloride 108 mmol/L (98-107); Glucose 98 mg/dL (74-99); Non-African American GFR(CKD) 45 (>60 ml/min/1.73 sqM); Potassium 4.9 mmol/L (3.5-5.1); Sodium 138 mmol/L (137-145)
--- NOTE | 2022-02-08 11:38 | P.PN ---
Progress Note - Text Progress Note Date: 02/08/22 Patient was seen and examined. No acute events overnight. Hemoglobin improved from 5-9.2 after 2 units PRBC. Patient denies any chest shortness breath or palpitations. No nausea or vomiting. No fever or chills. General: [non toxic], [no distress], [appears at stated age] Derm: [warm], [dry] Head: [atraumatic], [normocephalic], [symmetric] Eyes: [EOMI], [no lid lag], [anicteric sclera] Mouth: [no lip lesion], [mucus membranes moist] Cardiovascular: [S1S2 reg], [no murmur] Lungs: [CTA bilateral], [no rhonchi, no rales] , [no accessory muscle use] Ext: [no gross muscle atrophy], [no edema], [no contractures] Neuro: [no focal neuro deficits] Psych: [Alert], [oriented], [appropriate affect] #Severe anemia, normocytic #Descending thoracic aneurysm #Leukocytosis #Acute kidney injury Chronic conditions: Hypertension, dyslipidemia Patient's hemoglobin has improved after 2 units PRBC. Iron studies show elevated iron of 379 and % saturation of 83.3. B12 and folic acid within normal limits. She had recently had EGD and colonoscopy which was negative for acute bleed. Gen. surgery on board. Stool for occult blood ordered. Hematology consulted for further recommendations. Vascular surgery consulted for findings on CT AP. Leukocytosis of unknown origin. Plans to repeat CBC tomorrow morning. No signs of active infection. DC IVF and encourage hydration by mouth. Avoid nephrotoxins. Resolving. Continue Coreg. Continue Lipitor. DVT prophylaxis: [SCD boots] Discussed with: [Patient and family] Anticipated DC home today if cleared by vascular surgery. Patient can follow-up with hematology in the outpatient setting.
--- NOTE | 2022-02-08 12:05 | P.GSCN ---
History of Present Illness Consult date: 02/08/22 Reason for Consult: descending thoracic aortic aneurysm, possible penetrating ulcer History of present illness: 71 year old female with history of diverticulosis, hypertension, and previous hospitalizations for anemia. She was last seen in the hospital at [facility] in [place] for severe anemia and underwent full workup with EGD, Colonoscopy without a source of bleeding found. She recently had a routine blood test on Wednesday that revealed a hemoglobin of 6.2. She was not symptomatic at that time. She was seen in the ER for evaluation of her anemia and for transfusion. During her workup a CT of the abdomen and pelvis was obtained demonstrating a descending thoracic aneurysm with possible penetrating ulcer. The test was without co ntrast due to her acute renal insufficiency. She denies any fevers, chills, chest pain or shortness of breath. She states she wants to go home. Review of Systems All systems: negative (what is mentioned in the PMH or HPI) Past Medical History Past Medical History: Coronary Artery Disease (CAD), Cancer, COPD, CVA/TIA, Hypertension, Myocardial Infarction ([place]) Additional Past Medical History / Comment(s): Anemia, Orthostatic Hypotension, Hx Melanoma, Small kidney size Last Myocardial Infarction Date:: 06/28/2016 History of Any Multi-Drug Resistant Organisms: None Reported Past Surgical History: Cholecystectomy, Hysterectomy Additional Past Surgical History / Comment(s): Dual Pacemaker, two child births, eyelid surgery, mole removal on back Past Anesthesia/Blood Transfusion Reactions: No Reported Reaction Past Psychological History: No Psychological Hx Reported Smoking Status: Former smoker Past Alcohol Use History: Occasional Past Drug Use History: None Reported - Past Family History Mother Family Medical History: Hypertension Additional Family Medical History / Comment(s): patient adopted and does not know medical hx Medications and Allergies Home Medications Medication Instructions Recorded Confirmed Type Aspirin EC [Ecotrin Low Dose] 81 mg PO HS 02/06/22 02/06/22 History Ferrous Sulfate [Feosol] 162.5 mg PO SUTUTHSA@2100 02/06/22 02/06/22 History Fluticasone Nasal [place] [Flonase 1 - 2 spr EA NOSTRIL BID PRN 02/06/22 02/06/22 History Nasal [place]] Pantoprazole Sodium [Protonix] 40 mg PO HS PRN 02/06/22 02/06/22 History Rosuvastatin Calcium [Crestor] 5 mg PO HS 02/06/22 02/06/22 History Spironolactone [Aldactone] 12.5 mg PO MOWEFR 02/06/22 02/06/22 History Valsartan [Diovan] 40 mg PO BID 02/06/22 02/06/22 History carvediloL [Coreg] 6.25 mg PO BID 02/06/22 02/06/22 History Allergies Allergy/AdvReac Type Severity Reaction Status Date / Time lorazepam [From Ativan] Allergy Anaphylaxis Verified 02/06/22 16:16 Surgical - Exam Vital Signs Temp Pulse Resp BP Pulse Ox 97.6 F 91 20 149/67 97 02/06/22 14:28 02/06/22 14:28 02/06/22 14:28 02/06/22 14:28 02/06/22 14:28 palpable dp and pt pulses bilaterally palpable radial pulses bilaterally - General well developed, well nourished, no distress - Eyes normal ocular movement - ENT normal pinna, normal nares - Neck no masses - Respiratory normal expansion, normal respiratory effort - Cardiovascular Rhythm: regular - Abdomen Abdomen: soft, non tender - Integumentary no rash - Psychiatric oriented to time, oriented to person, oriented to place, speech is normal Results - Labs 02/08/22 09:27 02/08/22 09:27 Abnormal Lab Results - Last 24 Hours (Table) 02/07/22 02/07/22 02/07/22 Range/Units 04:00 14:02 14:02 WBC (3.8-10.6) k/uL RBC (3.80-5.40) m/uL Hgb (11.4-16.0) gm/dL Hct (34.0-46.0) % RDW (11.5-15.5) % Retic Count 2.5 H (0.5-2.0) % Chloride (98-107) mmol/L BUN (7-17) mg/dL Creatinine (0.52-1.04) mg/dL Iron 379 H (50-170) ug/dL % Saturation 83.30 H (12.00-45.00) Lactate Dehydrogenase 799 H (313-618) U/L 02/08/22 02/08/22 Range/Units 09:27 09:27 WBC 11.9 H (3.8-10.6) k/uL RBC 3.43 L (3.80-5.40) m/uL Hgb 9.2 L (11.4-16.0) gm/dL Hct 29.2 L (34.0-46.0) % RDW 17.0 H (11.5-15.5) % Retic Count (0.5-2.0) % Chloride 108 H (98-107) mmol/L BUN 29 H (7-17) mg/dL Creatinine 1.22 H (0.52-1.04) mg/dL Iron (50-170) ug/dL % Saturation (12.00-45.00) Lactate Dehydrogenase (313-618) U/L Diabetes panel 02/08/22 Range/Units 09:27 Sodium 138 (137-145) mmol/L Potassium 4.9 (3.5-5.1) mmol/L Chloride 108 H (98-107) mmol/L Carbon Dioxide 23 (22-30) mmol/L BUN 29 H (7-17) mg/dL Creatinine 1.22 H (0.52-1.04) mg/dL Glucose 98 (74-99) mg/dL Calcium 8.6 (8.4-10.2) mg/dL Thyroid panel 02/07/22 Range/Units 14:02 TSH 2.670 (0.465-4.680) mIU/L Calcium panel 02/08/22 Range/Units 09:27 Calcium 8.6 (8.4-10.2) mg/dL Pituitary panel 02/07/22 02/08/22 Range/Units 14:02 09:27 Sodium 138 (137-145) mmol/L Potassium 4.9 (3.5-5.1) mmol/L Chloride 108 H (98-107) mmol/L Carbon Dioxide 23 (22-30) mmol/L BUN 29 H (7-17) mg/dL Creatinine 1.22 H (0.52-1.04) mg/dL Glucose 98 (74-99) mg/dL Calcium 8.6 (8.4-10.2) mg/dL TSH 2.670 (0.465-4.680) mIU/L Adrenal panel 02/08/22 Range/Units 09:27 Sodium 138 (137-145) mmol/L Potassium 4.9 (3.5-5.1) mmol/L Chloride 108 H (98-107) mmol/L Carbon Dioxide 23 (22-30) mmol/L BUN 29 H (7-17) mg/dL Creatinine 1.22 H (0.52-1.04) mg/dL Glucose 98 (74-99) mg/dL Calcium 8.6 (8.4-10.2) mg/dL Assessment and Plan Assessment: 1. Descending thoracic aortic aneurysm 2. Possible descending thoracic aortic ulceration 3. Severe anemia 4. HERNAN 5. Hypertension Plan: Reviewed CT abdomen and pelvis with her in full detail. No contrast was used in the scan and therefore difficult to tell if any penetrating ulcer present. Would continue to treat her anemia as well as monitor her kidney function. Once kidney function is improved or stable then would recommend CTA of the chest to delineate severity of the aneurysm and if there is a penetrating ulcer- this can be done as outpatient Continue current treatment. Blood pressure control. Further recommendations to follow. Thank you for the consultation.
[2022-02-08 12:49] LABS: Protein, Total 6.4 g/dL (6.2-8.2)
--- NOTE | 2022-02-08 13:44 | P.DS ---
Providers Date of admission: 02/06/22 17:29 Expected date of discharge: 02/08/22 Attending physician: Brooklynn Feliz MD Consults: 02/07/22 03:06 Consult Physician Urgent Consulting Provider: Ronel Owuus Consult Reason/Comments: GIB Do you want consulting provider notified?: Yes 02/07/22 13:07 Consult Physician Stat Consulting Provider: Rogelio Arora Consult Reason/Comments: anemia Do you want consulting provider notified?: Yes 02/08/22 10:55 Consult Physician Stat Consulting Provider: Amanda Swartz Consult Reason/Comments: penetrating thoracic atherosclerotic ulcer Do you want consulting provider notified?: Yes Primary care physician: [facility] Course: The patient is a 71-year-old female with a PMH of diverticulosis, status post AICD placement (unknown reason) hypertension, and hyperlipidemia who was sent to the emergency room after laboratory evaluation revealed a hemoglobin of 6.2. History supplemented by the patient's daughter at the bedside. The patient reports that March 2021, she was hospitalized at [facility] for severe anemia which was diagnosed during a preop evaluation for an AICD placement. The patient had subsequently undergone an EGD and colonoscopy with no source of bleeding identified. The patient has since been following up with GI and reports that she had another routine set of blood work this past Wednesday, for which she was informed that her hemoglobin was 6.2. The patient denied noticing bright red blood per rectum or black tarry stools. She also denied abdominal pain, nausea, vomiting. Reports that she feels that her baseline and denied experiencing weakness or fatigue. Patient reports taking oral iron for possible iron deficiency. She reports that the prior colonoscopy did reveal diverticulosis which was suspected to be the likely culprit. Patient denied using NSAIDs. She denied experiencing chest discomfort or shortness of breath. She reports feeling at her baseline at the time of interview. Laboratory evaluation in the emergency room was remarkable for hemoglobin of 5.0, MCV 80.5, W [place] count 13.0, BUN 56, and creatinine 1.43. Patient was transfused 2 units PRBC. Her hemoglobin improved from 5 to 9.2. Hematology was consulted with regard to her anemia and stools for occult blood was ordered along with EL, [place] and lambda light chain, immunofixation, meth ylmalonic acid, protein electrophoresis. General surgery was consulted and recommended CTAP. CT AP showed aneurysmal dilatation of the descending thoracic aorta, concerns for penetrating atherosclerotic ulcer. Vascular surgery was consulted and recommended outpatient follow-up for CTA chest. The case was discussed with Dr. Harrington who cleared the patient for discharge. Patient reported no complaints when seen on 02/08/2022. She was excited about the prospect of going home. She is advised to follow-up with her PCP within 1-2 days of discharge. Advised to follow-up with hematology within 1 week of discharge. Advised to follow-up with vascular surgery within 1 week of discharge. General: [non toxic], [no distress], [appears at stated age] Derm: [warm], [dry] Head: [atraumatic], [normocephalic], [symmetric] Eyes: [EOMI], [no lid lag], [anicteric sclera] Mouth: [no lip lesion], [mucus membranes moist] Cardiovascular: [S1S2 reg], [no murmur] Lungs: [CTA bilateral], [no rhonchi, no rales] , [no accessory muscle use] Ext: [no gross muscle atrophy], [no edema], [no contractures] Neuro: [no focal neuro deficits] Psych: [Alert], [oriented], [appropriate affect] Discharge Diagnosis: #Severe anemia, normocytic #Descending thoracic aneurysm #Leukocytosis #Acute kidney injury Chronic conditions: Hypertension, dyslipidemia This complex discharge took about 40 minutes to complete. Pertinent Studies: CT AP Patient Condition at Discharge: Stable Plan - Discharge Summary Discharge Rx Participant: No New Discharge Prescriptions: Continue carvediloL [Coreg] 6.25 mg PO BID Valsartan [Diovan] 40 mg PO BID Fluticasone Nasal [place] [Flonase Nasal [place]] 1 - 2 spr EA NOSTRIL BID PRN PRN Reason: Allergy Symptoms Spironolactone [Aldactone] 12.5 mg PO MOWEFR Rosuvastatin Calcium [Crestor] 5 mg PO HS Ferrous Sulfate [Iron (65 MG Elemental)] 162.5 mg PO SUTUTHSA@2100 Aspirin EC [Ecotrin Low Dose] 81 mg PO HS Changed Pantoprazole Sodium [Protonix] 40 mg PO HS #0 Discharge Medication List Aspirin EC [Ecotrin Low Dose] 81 mg PO HS 02/06/22 [History] Ferrous Sulfate [Iron (65 MG Elemental)] 162.5 mg PO SUTUTHSA@2100 02/06/22 [History] Fluticasone Nasal [place] [Flonase Nasal [place]] 1 - 2 spr EA NOSTRIL BID PRN 02/06/22 [History] Rosuvastatin Calcium [Crestor] 5 mg PO HS 02/06/22 [History] Spironolactone [Aldactone] 12.5 mg PO MOWEFR 02/06/22 [History] Valsartan [Diovan] 40 mg PO BID 02/06/22 [History] carvediloL [Coreg] 6.25 mg PO BID 02/06/22 [History] Pantoprazole Sodium [Protonix] 40 mg PO HS #0 02/08/22 [Rx] Follow up Appointment(s)/Referral(s): Rogelio Arora MD [STAFF PHYSICIAN] - 1 Week Alber Amor MD [Primary Care Provider] - 1-2 days Jorge Harrington DO [STAFF PHYSICIAN] - 1 Week Activity/Diet/Wound Care/Special Instructions: Diet: Cardiac Follow-up with your PCP within 1-2 days of discharge. Follow-up with hematology within 1 week of discharge. Follow-up with vascular surgery within 1 week of discharge. You'll need a CT chest to evaluate for descending thoracic aneurysm. Please follow-up with vascular surgery Dr. Harrington in order to obtain this. Take all medications as advised. Come back to the ED for worsening chest pain, shortness of breath, palpitations or lightheadedness. Discharge Disposition: HOME SELF-CARE
--- NOTE | 2022-02-08 21:10 | P.PN ---
Subjective Progress Note Date: 02/08/22 CHIEF COMPLAINT: Anemia HISTORY OF PRESENT ILLNESS: The patient is a 71 year old female who presented to the hospital with anemia hemoglobin 5.0. She was given 2 units of packed blood cells. Hemoglobin stable after 24 hours. No signs of bleeding. No abdominal pain. Patient eager to go home. Patient has been seen by hematology. REVIEW OF ORGAN SYSTEMS: RESPIRATORY: Has chronic obstructive pulmonary disease. CARDIOVASCULAR: Has hypertensive heart disease. Has hyperlipidemia. Has coronary artery disease. History of myocardial infarction. Recent pacemaker placement less than 1 year ago. GASTROINTESTINAL: Has anemia of unexplained origin. Has gastroesophageal reflux disease. PHYSICAL EXAM: VITALS: Reviewed CONSTITUTIONAL: Well developed and in no acute distress. EYES: Conjuctivae without sclera icterus. Extraocular movements grossly intact. HEAD, EARS, NOSE, THROAT: Moist buccal mucosa. Head is atraumatic, normocephalic. Hears conversational speech. No nasal drainage. RESPIRATORY: Non-labored respirations and equal bilateral excursions. CARDIOVASCULAR: Palpable 2+ radial pulses. ABDOMEN: Nontender. MUSCULOSKELETAL: No clubbing cyanosis or edema. SKIN: Warm and well perfused with good skin turgor. NEUROLOGIC: Cranial nerves II through XII grossly intact. No focal or lateralizing signs. PSYCH: Appropriate affect. Alert and oriented to person, place and time. Displays appropriate insight. CLINCAL LABS: Reviewed. Hemoglobin on admission 5.0 up to 9.2 after 2 units blood transfusion. Hemoglobin stable 9.2 today. STUDIES: CT of the abdomen and pelvis reviewed demonstrating no intra-abdominal mass or concerns for malignancy. This is my independent interpretation. ASSESSMENT: 1. Anemia of unexplained origin 2. Status post blood transfusion 3. Pacemaker placement 4. Ischemic cardiomyopathy 5. History of recent stroke 6. Hypertensive heart disease or chronic renal insufficiency, stage III 7. Leukocytosis 8. Iron deficiency anemia PLAN: 1. Patient is clinically stable. 2. Patient may follow up as outpatient Objective - Vital Signs Vital signs: Vital Signs Temp 98.1 F 02/08/22 07:58 Pulse 68 02/08/22 07:58 Resp 17 02/08/22 07:58 BP 140/67 02/08/22 07:58 Pulse Ox 97 02/08/22 07:58 FiO2 Intake & Output 02/07/22 02/08/22 02/08/22 18:59 06:59 18:59 Weight 47.627 kg Other: Voiding Method Toilet Toilet # Voids 2 1 - Labs CBC & Chem 7: 02/08/22 09:27 02/08/22 09:27 Labs: Abnormal Lab Results - Last 24 Hours (Table) 02/07/22 02/07/22 02/07/22 Range/Units 04:00 14:02 14:02 WBC (3.8-10.6) k/uL RBC (3.80-5.40) m/uL Hgb (11.4-16.0) gm/dL Hct (34.0-46.0) % RDW (11.5-15.5) % Retic Count 2.5 H (0.5-2.0) % Chloride (98-107) mmol/L BUN (7-17) mg/dL Creatinine (0.52-1.04) mg/dL Iron 379 H (50-170) ug/dL % Saturation 83.30 H (12.00-45.00) Lactate Dehydrogenase 799 H (313-618) U/L 02/08/22 02/08/22 Range/Units 09:27 09:27 WBC 11.9 H (3.8-10.6) k/uL RBC 3.43 L (3.80-5.40) m/uL Hgb 9.2 L (11.4-16.0) gm/dL Hct 29.2 L (34.0-46.0) % RDW 17.0 H (11.5-15.5) % Retic Count (0.5-2.0) % Chloride 108 H (98-107) mmol/L BUN 29 H (7-17) mg/dL Creatinine 1.22 H (0.52-1.04) mg/dL Iron (50-170) ug/dL % Saturation (12.00-45.00) Lactate Dehydrogenase (313-618) U/L
[2022-02-09 09:10] LABS: Free Kappa Lt Chain Qnt, Serum 2.63 mg/dL (0.33-1.94); Free Lambda Lt Chain Qnt, Seru 2.41 mg/dL (0.57-2.63)
[2022-02-09 12:17] LABS: Albumin 3.49 g/dL (3.80-4.90); Gamma Globulin 0.94 g/dL (0.70-1.50)
== END 2022-02-08 14:32 | disposition home or self-care (01) | DRG 812 ==
LOC: EC 14:24 → 4SSUR 17:29
PROVIDERS: ADMIT Internal Medicine; ATTEND Internal Medicine
PROC: 30233N1 Transfusion of Nonautologous Red Blood Cells into Peripheral Vein, Percutaneous Approach (ICD-10-PCS; principal; 2022-02-06)
DX: D64.9 Anemia, unspecified (principal); N17.9 Acute kidney failure, unspecified; I71.2 Thoracic aortic aneurysm, without rupture; I13.10 Hypertensive heart and chronic kidney disease without heart failure, with stage 1 through stage 4 chronic kidney disease, or unspecified chronic kidney disease; N18.30 Chronic kidney disease, stage 3 unspecified; J44.9 Chronic obstructive pulmonary disease, unspecified; I25.5 Ischemic cardiomyopathy; E78.5 Hyperlipidemia, unspecified; D72.829 Elevated white blood cell count, unspecified; K21.9 Gastro-esophageal reflux disease without esophagitis; I25.2 Old myocardial infarction; I25.10 Atherosclerotic heart disease of native coronary artery without angina pectoris; N27.0 Small kidney, unilateral; K57.30 Diverticulosis of large intestine without perforation or abscess without bleeding; R19.7 Diarrhea, unspecified; Z79.82 Long term (current) use of aspirin; Z79.899 Other long term (current) drug therapy; Z87.891 Personal history of nicotine dependence; Z95.810 Presence of automatic (implantable) cardiac defibrillator; Z85.820 Personal history of malignant melanoma of skin; Z86.73 Personal history of transient ischemic attack (TIA), and cerebral infarction without residual deficits; Z90.49 Acquired absence of other specified parts of digestive tract; Z90.710 Acquired absence of both cervix and uterus; Z87.19 Personal history of other diseases of the digestive system; Z88.8 Allergy status to other drugs, medicaments and biological substances; Z82.49 Family history of ischemic heart disease and other diseases of the circulatory system
CPT/HCPCS: 36415; 74176; 80048; 80053; 82607; 82728; 82746; 82784; 83540; 83550; 83615; 83735; 83883; 83921; 84165; 84443; 85025; 85027; 85045; 85610; 85652; 85730; 86038; 86334; 86431; 86850; 86900; 86901; 86920; 93005; 96361; 96374; 99291

== ENCOUNTER 2024-07-14 17:45 | Emergency (ER) | payer MEDICARE ==
[2024-07-14 18:12] VITALS: RESP 16; TEMP 98.5
--- NOTE | 2024-07-14 18:51 | ED ---
Recheck HPI - General Chief Complaint: Recheck/Abnormal Lab/Rx Stated Complaint: Abn labs Time Seen by Provider: 07/14/24 18:38 Source: patient, family, RN notes reviewed Mode of arrival: ambulatory Limitations: no limitations - History of Present Illness Initial Comments: This is a 74-year-old female with a history of anemia presented to the emergency department with abnormal labs. Patient's daughter at bedside states that she is concerned the patient appeared pale in color over the past few days and knowing she has a history of critically low hemoglobin called patient's primary care provider's office for outpatient labs to be ordered. Patient had lab testing done today at [facility] where she was instructed reports emergency department for critically low hemoglobin of 6.8. Patient denies chest pain, dyspnea, heart palpitations, dyspnea on exertion, abdominal pain, nausea or vomiting. She denies hematochezia, melena, emesis. She denies blood thinner use. Daughter at bedside states that patient was offered bone marrow biopsy few years ago to determine potential cause anemia however patient has declined this. - Related Data Home Medications Medication Instructions Recorded Confirmed Aspirin EC [Ecotrin Low Dose] 81 mg PO HS 02/06/22 02/06/22 Ferrous Sulfate [Iron (65 MG 162.5 mg PO SUTUTHSA@2100 02/06/22 02/06/22 Elemental)] Fluticasone Nasal [place] [Flonase 1 - 2 spr EA NOSTRIL BID PRN 02/06/22 02/06/22 Nasal [place]] Rosuvastatin Calcium [Crestor] 5 mg PO HS 02/06/22 02/06/22 Spironolactone [Aldactone] 12.5 mg PO MOWEFR 02/06/22 02/06/22 Valsartan [Diovan] 40 mg PO BID 02/06/22 02/06/22 carvediloL [Coreg] 6.25 mg PO BID 02/06/22 02/06/22 Previous Rx's Medication Instructions Recorded Pantoprazole Sodium [Protonix] 40 mg PO HS #0 02/08/22 Allergies Allergy/AdvReac Type Severity Reaction Status Date / Time lorazepam [From Ativan] Allergy Anaphylaxis Verified 07/14/24 18:12 Review of Systems ROS Statement: Those systems with pertinent positive or pertinent negative responses have been documented in the HPI. ROS Other: All systems not noted in ROS Statement are negative. Past Medical History Past Medical History: Coronary Artery Disease (CAD), Cancer, COPD, CVA/TIA, Hypertension, Myocardial Infarction ([place]) Additional Past Medical History / Comment(s): Anemia, Orthostatic Hypotension, Hx Melanoma, Small kidney size Last Myocardial Infarction Date:: 06/28/2016 History of Any Multi-Drug Resistant Organisms: None Reported Past Surgical History: Cholecystectomy, Hysterectomy Additional Past Surgical History / Comment(s): Dual Pacemaker, two child births, eyelid surgery, mole removal on back Past Anesthesia/Blood Transfusion Reactions: No Reported Reaction Past Psychological History: No Psychological Hx Reported Smoking Status: Former smoker Past Alcohol Use History: Occasional Past Drug Use History: None Reported - Past Family History Mother Family Medical History: Hypertension Additional Family Medical History / Comment(s): patient adopted and does not know medical hx General Exam Limitations: no limitations ENT exam: Present: normal exam, mucous membranes moist Respiratory exam: Present: normal lung sounds bilaterally. Absent: respiratory distress, wheezes, rales, rhonchi, stridor Cardiovascular Exam: Present: regular rate, normal rhythm, normal heart sounds. Absent: systolic murmur, diastolic murmur, rubs, gallop, clicks GI/Abdominal exam: Present: soft, normal bowel sounds. Absent: distended, tenderness, guarding, rebound, rigid Extremities exam: Present: normal inspection, full ROM, normal capillary refill. Absent: tenderness, pedal edema, joint swelling, calf tenderness Skin exam: Present: warm, dry, intact, normal color. Absent: rash Course Vital Signs 07/14/24 07/14/24 18:10 20:08 Temperature 98.5 F Pulse Rate 102 H 97 Respiratory 16 16 Rate Blood Pressure 156/68 159/63 O2 Sat by Pulse 99 100 Oximetry Medical Decision Making - Medical Decision Making Was pt. sent in by a medical professional or institution (, PA, OPERATING ROOM SURGICAL TECHNICIAN, urgent care, hospital, or [facility]...) When possible be specific @ -No Did you speak to anyone other than the patient for history (EMS, parent, family, police, friend...)? What history was obtained from this source @ -Spoke to patient's daughter at bedside states that patient has been having ongoing anemia over the past 2 to 3 years where she has required blood transfusions in the past. Did you review nursing and triage notes (agree or disagree)? Why? @ -I reviewed and agree with nursing and triage notes Were old charts reviewed (outside hosp., previous admission, EMS record, old EKG, old radiological studies, urgent care reports/EKG's, [facility] records)? Report findings @ -No old charts were reviewed Differential Diagnosis (chest pain, altered mental status, abdominal pain women, abdominal pain men, vaginal bleeding, weakness, fever, dyspnea, syncope, headache, dizziness, GI bleed, back pain, seizure, CVA, palpatations, mental health, musculoskeletal)? @ -Differential GI Bleed: Esophageal varices, aortoenteric fistula, Ying-Montilla, gastritis, peptic ulcer disease, diverticulosis, inflammatory bowel disease, hemorrhoids, fissure, colitis, malignancy, Meckel's diverticulum, this is not meant to be an all-inclusive list. EKG interpreted by me (3pts min.). @ -none X-rays interpreted by me (1pt min.). @ -None done CT interpreted by me (1pt min.). @ -None done U/S interpreted by me (1pt. min.). @ -None done What testing was considered but not performed or refused? (CT, X-rays, U/S, labs)? Why? @ -None What meds were considered but not given or refused? Why? @ -None Did you discuss the management of the patient with other professionals (professionals i.e. , PA, OPERATING ROOM SURGICAL TECHNICIAN, lab, RT, psych nurse, social services analyst, ornamental rail installer, teacher, budget officer, case finishing machine adjuster)? Give summary @ -No Was smoking cessation discussed for >3mins.? @ -No Was critical care preformed (if so, how long)? @ -No Were there social determinants of health that impacted care today? How? (Homelessness, low income, unemployed, alcoholism, drug addiction, transportation, low edu. Level, literacy, decrease access to med. care, long-term, rehab)? @ -No Was there de-escalation of care discussed even if they declined (Discuss DNR or withdrawal of care, Hospice)? DNR status @ -No What co-morbidities impacted this encounter? (DM, HTN, Smoking, COPD, CAD, Cancer, CVA, ARF, Chemo, Hep., AIDS, mental health diagnosis, sleep apnea, morbid obesity)? @ -None Was patient admitted / discharged? Hospital course, mention meds given and route, prescriptions, significant lab abnormalities, going to OR and other pertinent info. @ -Discharge. 74-year-old female presenting with daughter for anemia with critically low hemoglobin. On my evaluation the patient is resting company no signs acute distress. She has noted to have bilateral pallor conjunctiva. Her vitals are stable. Patient's hemoglobin remarkable for 7.0 hematocrit of 23.3. Patient's hemoglobin is stable not requiring transfusion at this time. Patient is provided with prescription for outpatient lab draw to be completed in 3 days for reevaluation of hemoglobin and advise close follow-up with primary care provider for further evaluation. Discussed with Dr. Limon Undiagnosed new problem with uncertain prognosis? @ -No Drug Therapy requiring intensive monitoring for toxicity (Heparin, Nitro, Insulin, Cardizem)? @ -No Were any procedures done? @ -No Diagnosis/symptom? @ -anemia Acute, or Chronic, or Acute on Chronic? @ -acute, acute on chronic Uncomplicated (without systemic symptoms) or Complicated (systemic symptoms)? @ -uncomplicated Side effects of treatment? @ -No Exacerbation, Progression, or Severe Exacerbation? @ -No Poses a threat to life or bodily function? How? (Chest pain, [place], [place], pneumonia, PE, COPD, DKA, ARF, appy, cholecystitis, CVA, Diverticulitis, Homicidal, Suicidal, threat to staff... and all critical care pts) @ -No - Lab Data Result diagrams: 07/14/24 18:42 07/14/24 18:42 Lab Results 07/14/24 07/14/24 07/14/24 Range/Units 18:42 18:42 18:45 WBC 7.9 (3.8-10.6) k/uL RBC 2.86 L (3.80-5.40) m/uL Hgb 7.0 L (11.4-16.0) gm/dL Hct 23.3 L (34.0-46.0) % MCV 81.5 (80.0-100.0) fL MCH 24.4 L (25.0-35.0) pg MCHC 30.0 L (31.0-37.0) g/dL RDW 16.9 H (11.5-15.5) % Plt Count 272 (150-450) k/uL MPV 8.7 Neutrophils % 70 % Lymphocytes % 18 % Monocytes % 7 % Eosinophils % 3 % Basophils % 0 % Neutrophils # 5.5 (1.3-7.7) k/uL Lymphocytes # 1.5 (1.0-4.8) k/uL Monocytes # 0.5 (0-1.0) k/uL Eosinophils # 0.2 (0-0.7) k/uL Basophils # 0.0 (0-0.2) k/uL Hypochromasia Marked Anisocytosis Slight Sodium 141 (137-145) mmol/L Potassium 4.5 (3.5-5.1) mmol/L Chloride 105 (98-107) mmol/L Carbon Dioxide 29 (22-30) mmol/L Anion Gap 7 mmol/L BUN 31 H (7-17) mg/dL Creatinine 1.45 H (0.52-1.04) mg/dL Est GFR (CKD-EPI)AfAm 41 (>60 ml/min/1.73 sqM) Est GFR (CKD-EPI)NonAf 36 (>60 ml/min/1.73 sqM) Glucose 107 H (74-99) mg/dL Calcium 9.8 (8.4-10.2) mg/dL Total Bilirubin 0.2 (0.2-1.3) mg/dL AST 28 (14-36) U/L ALT 10 (4-34) U/L Alkaline Phosphatase 99 (38-126) U/L Total Protein 7.3 (6.3-8.2) g/dL Albumin 4.2 (3.5-5.0) g/dL Blood Type O Negative Blood Type Recheck O Neg Bld Type Recheck Status No Antibody Screen POSITIVE Antibody Identification Anti-K Direct Antiglob Test Negative Spec Expiration Date 07/17/20242344 Disposition Clinical Impression: Anemia Disposition: HOME SELF-CARE Condition: Stable Instructions (If sedation given, give patient instructions): Anemia (ED) Additional Instructions: Please return to the Emergency Department if symptoms worsen or any other concerns. Is patient prescribed a controlled substance at d/c from ED?: No Referrals: Nonstaff,Physician [Primary Care Provider] - 1-2 days Time of Disposition: 19:43
[2024-07-14 19:07] LABS: ALT 10 U/L (4-34); AST 28 U/L (14-36); African American GFR (CKD) 41 (>60 ml/min/1.73 sqM); Albumin 4.2 g/dL (3.5-5.0); Alkaline Phosphatase 99 U/L (38-126); Anion Gap 7 mmol/L; Blood Urea Nitrogen 31 mg/dL (7-17); Calcium 9.8 mg/dL (8.4-10.2); Carbon Dioxide 29 mmol/L (22-30); Chloride 105 mmol/L (98-107); Glucose 107 mg/dL (74-99); Non-African American GFR(CKD) 36 (>60 ml/min/1.73 sqM); Potassium 4.5 mmol/L (3.5-5.1); Sodium 141 mmol/L (137-145); Total Bilirubin 0.2 mg/dL (0.2-1.3); Total Protein 7.3 g/dL (6.3-8.2)
[2024-07-14 19:12] LABS: Anisocytosis Slight; Basophils % (A) 0 %; Eosinophils # (A) 0.2 k/uL (0-0.7); Eosinophils % (A) 3 %; HCT 23.3 % (34.0-46.0); Hypochromasia Marked; Lymphocytes # (A) 1.5 k/uL (1.0-4.8); Lymphocytes % (A) 18 %; MCH 24.4 pg (25.0-35.0); MCV 81.5 fL (80.0-100.0); Mean Platelet Volume 8.7; Monocytes # (A) 0.5 k/uL (0-1.0); Monocytes % (A) 7 %; Neutrophils # (A) 5.5 k/uL (1.3-7.7); Neutrophils % (A) 70 %; Platelet Count 272 k/uL (150-450); RBC 2.86 m/uL (3.80-5.40); RDW 16.9 % (11.5-15.5); WBC 7.9 k/uL (3.8-10.6)
[2024-07-14 20:12] VITALS: BP 159/63; PULSE 97
== END 2024-07-14 20:08 | disposition home or self-care (01) ==
LOC: EC 17:45
DX: D64.9 Anemia, unspecified (principal); Z87.891 Personal history of nicotine dependence; Z88.8 Allergy status to other drugs, medicaments and biological substances
CPT/HCPCS: 36415; 80053; 85025; 86850; 86870; 86880; 86900; 86901; 99283

== ENCOUNTER 2024-07-17 12:10 | Emergency (ER) | payer MEDICARE ==
--- NOTE | 2024-07-17 12:40 | ED ---
General Adult HPI - General Chief complaint: Recheck/Abnormal Lab/Rx Stated complaint: heaileenglobin low Time Seen by Provider: 07/17/24 12:15 Source: patient, RN notes reviewed, old records reviewed Mode of arrival: ambulatory Limitations: no limitations - History of Present Illness Initial comments: This is a 74-year-old female who presents to the emergency department with a past medical history significant for anemia. Patient states she has been here multiple times in the past for a transfusion. Patient states she had her blood drawn today was 6.9 so she comes in for transfusion. Patient denies any shortness of breath difficulty breathing or lightheadedness. Patient has any chest pain or palpitations. Patient has any nausea vomiting diarrhea. Patient denies any black or bloody stools. Patient currently has asymptomatic - Related Data Home Medications Medication Instructions Recorded Confirmed Aspirin EC [Ecotrin Low Dose] 81 mg PO HS 02/06/22 07/17/24 Ferrous Sulfate [Iron (65 MG 162.5 mg PO DAILY 02/06/22 07/17/24 Elemental)] Rosuvastatin Calcium [Crestor] 5 mg PO HS 02/06/22 07/17/24 Spironolactone [Aldactone] 12.5 mg PO MOWEFR 02/06/22 07/17/24 Valsartan [Diovan] 40 mg PO BID MDD sloan 02/06/22 07/17/24 carvediloL [Coreg] 6.25 mg PO BID 02/06/22 07/17/24 Allergies Allergy/AdvReac Type Severity Reaction Status Date / Time lorazepam [From Ativan] Allergy Anaphylaxis Verified 07/17/24 13:24 Review of Systems ROS Statement: Those systems with pertinent positive or pertinent negative responses have been documented in the HPI. ROS Other: All systems not noted in ROS Statement are negative. Past Medical History Past Medical History: Coronary Artery Disease (CAD), Cancer, COPD, CVA/TIA, Hypertension, Myocardial Infarction ([place]) Additional Past Medical History / Comment(s): Anemia, Orthostatic Hypotension, Hx Melanoma, Small kidney size Last Myocardial Infarction Date:: 06/28/2016 History of Any Multi-Drug Resistant Organisms: None Reported Past Surgical History: Cholecystectomy, Hysterectomy Additional Past Surgical History / Comment(s): Dual Pacemaker, two child births, eyelid surgery, mole removal on back Past Anesthesia/Blood Transfusion Reactions: No Reported Reaction Past Psychological History: No Psychological Hx Reported Smoking Status: Former smoker Past Alcohol Use History: Occasional Past Drug Use History: None Reported - Past Family History Mother Family Medical History: Hypertension Additional Family Medical History / Comment(s): patient adopted and does not know medical hx General Exam - General Exam Comments Initial Comments: GENERAL: Patient is well-developed and well-nourished. Patient is nontoxic and well- hydrated and is in no acute distress. ENT: Neck is soft and supple. No significant lymphadenopathy is noted. Oropharynx is clear. Moist mucous membranes. Neck has full range of motion without eliciting any pain. EYES: The sclera were anicteric and conjunctiva were pink and moist. Extraocular movements were intact and pupils were equal round and reactive to light. Eyelids were unremarkable. PULMONARY: Unlabored respirations. Good breath sounds bilaterally. No audible rales r honchi or wheezing was noted. CARDIOVASCULAR: There is a regular rate and rhythm without any murmurs gallops or rubs. ABDOMEN: Soft and nontender with normal bowel sounds. SKIN: Skin is clear with no lesions or rashes and otherwise unremarkable. NEUROLOGIC: Patient is alert and oriented x3. Cranial nerves II through XII are grossly intact. Motor and sensory are also intact. Normal speech, volume and content. Symmetrical smile. MUSCULOSKELETAL: Normal extremities with adequate strength and full range of motion. LYMPHATICS: No significant lymphadenopathy is noted PSYCHIATRIC: Normal psychiatric evaluation. Limitations: no limitations Course Vital Signs 07/17/24 12:11 Temperature 98.7 F Pulse Rate 92 Respiratory 20 Rate Blood Pressure 148/59 O2 Sat by Pulse 97 Oximetry Medical Decision Making - Medical Decision Making EKG is interpreted by myself but EKG shows a paced rhythm at 59 bpm NV interval 167 QRS is 90 QT interval is 426 QTc is 426 Was pt. sent in by a medical professional or institution (, PA, OYSTER HARVESTER, urgent care, hospital, or prison...) When possible be specific @ -No Did you speak to anyone other than the patient for history (EMS, parent, family, police, friend...)? What history was obtained from this source @ -No Did you review nursing and triage notes (agree or disagree)? Why? @ -I reviewed and agree with nursing and triage notes Were old charts reviewed (outside hosp., previous admission, EMS record, old EKG, old radiological studies, urgent care reports/EKG's, prison records)? Report findings @ -No old charts were reviewed Differential Diagnosis? @ -Anemia, GI bleed, hematuria, iron deficiency, this is not an all-inclusive list EKG interpreted by me (3pts min.). @ -As above X-rays interpreted by me (1pt min.). @ -None done CT interpreted by me (1pt min.). @ -None done U/S interpreted by me (1pt. min.). @ -None done What testing was considered but not performed or refused? (CT, X-rays, U/S, labs)? Why? @ -None What meds were considered but not given or refused? Why? @ -None Did you discuss the management of the patient with other professionals (professionals i.e. , PA, OYSTER HARVESTER, lab, RT, psych nurse, clinical social work aide, narcotics investigator, teacher, traffic police officer, lead case manager)? Give summary @ -No Was smoking cessation discussed for >3mins.? @ -No Was critical care preformed (if so, how long)? @ -35 minutes Were there social determinants of health that impacted care today? How? (Homeles sness, low income, unemployed, alcoholism, drug addiction, transportation, low edu. Level, literacy, decrease access to med. care, prison, rehab)? @ -No Was there de-escalation of care discussed even if they declined (Discuss DNR or withdrawal of care, Hospice)? DNR status @ -No What co-morbidities impacted this encounter? (DM, HTN, Smoking, COPD, CAD, Cancer, CVA, ARF, Chemo, Hep., AIDS, mental health diagnosis, sleep apnea, morbid obesity)? @ -None Was patient admitted / discharged? Hospital course, mention meds given and route, prescriptions, significant lab abnormalities, going to OR and other pertinent info. @ -Patient has been asymptomatic throughout her ED stay. Patient just wants to get a unit of blood and does not want any further workup at this time. Patient states she has been chronically anemic and has not wanted to figure out further why she is anemic and is refused any kind of bone marrow biopsy. Patient received 1 unit of packed red blood cells and will follow-up with her primary medical care doctor Undiagnosed new problem with uncertain prognosis? @ -No Drug Therapy requiring intensive monitoring for toxicity (Heparin, Nitro, Insulin, Cardizem)? @ -No Were any procedures done? @ -No Diagnosis/symptom? @ -Anemia Acute, or Chronic, or Acute on Chronic? @ -Acute Uncomplicated (without systemic symptoms) or Complicated (systemic symptoms)? @ -Complicated Side effects of treatment? @ -No Exacerbation, Progression, or Severe Exacerbation? @ -No Poses a threat to life or bodily function? How? (Chest pain, [place], [place], pneumonia, PE, COPD, DKA, ARF, appy, cholecystitis, CVA, Diverticulitis, Homicidal, Suicidal, threat to staff... and all critical care pts) @ -Yes this could cause hypoxia and endorgan dysfunction Disposition Clinical Impression: Anemia, Encounter for blood transfusion Disposition: HOME SELF-CARE Condition: Good Instructions (If sedation given, give patient instructions): Anemia (ED) Is patient prescribed a controlled substance at d/c from ED?: No Referrals: Liliana Gallardo DO [Primary Care Provider] - 1-2 days Time of Disposition: 15:30
[2024-07-17] MEDS: HYDROmorphone 0.5 MG/0.5 ML SYRINGE IM STA (13:54)
[2024-07-17 21:02] VITALS: PULSE 84; RESP 18; TEMP 98.6
[2024-07-17 21:20] VITALS: BP 182/90
== END 2024-07-17 21:20 | disposition home or self-care (01) ==
LOC: EC 12:10
DX: D64.9 Anemia, unspecified (principal); Z87.891 Personal history of nicotine dependence; Z88.8 Allergy status to other drugs, medicaments and biological substances
CPT/HCPCS: 86900; 86901; 86850; 86920; 86870; 86880; 99284; 36430; 96372; P9016; J1171

== ENCOUNTER → 2024-07-17 | Outpatient (CLI) | payer MEDICARE ==
[2024-07-17 11:18] LABS: Anisocytosis Moderate; Hypochromasia Marked; MCH 24.9 pg (25.0-35.0); Mean Platelet Volume 9.6; Platelet Count 272 k/uL (150-450); RBC 2.77 m/uL (3.80-5.40); RDW 20.1 % (11.5-15.5); WBC 9.5 k/uL (3.8-10.6)
[2024-07-17 11:50] LABS: HGB 6.9 gm/dL (11.4-16.0)
[2024-07-17 12:36] LABS: Nucleated Red Blood Cells 0 /100 WBC (0-0)
[2024-07-17 12:38] LABS: Lymphocytes # (M) 1.52 k/uL (1.0-4.8); Monocytes # (M) 1.43 k/uL (0-1.0); Neutrophils # (M) 6.56 k/uL (1.3-7.7); Neutrophils % (M) 69 %; Total Cells Counted 200
== END | disposition home or self-care (01) ==
LOC: LABWHC1 09:50
PROVIDERS: ATTEND Physician Assistant
DX: D53.9 Nutritional anemia, unspecified (principal)
CPT/HCPCS: 36415; 85025

== ENCOUNTER → 2024-07-22 | Outpatient (CLI) | payer MEDICARE ==
[2024-07-22 12:47] LABS: HCT 33.1 % (37.2-46.3); HGB 9.8 g/dL (12.0-15.0); MCH 26.6 pg (27.0-32.0); MCHC 29.6 g/dL (32.0-37.0); MCV 89.7 FL (80.0-97.0); Mean Platelet Volume 9.9 FL (9.5-12.2); NRBC Per 100 WBC 0 X 10*3/uL (0.00-0.01); Platelet Count 285 X 10*3/uL (140-440); RBC 3.69 X 10*6/uL (4.10-5.20); RDW 21.5 % (11.5-14.5); WBC 9.44 X 10*3/uL (4.50-10.00)
[2024-07-22 13:24] LABS: ALT 9 U/L (8-44); AST 26 U/L (13-35); Albumin/Globulin Ratio 1.21 Ratio (1.60-3.17); Alkaline Phosphatase 121 U/L (41-126); Blood Urea Nitrogen 24.2 mg/dL (9.0-27.0); Calcium 9.6 mg/dL (8.7-10.3); Carbon Dioxide 21.9 mmol/L (21.6-31.8); Chloride 107 mmol/L (96-109); Globulin 3.3 g/dL (1.6-3.3); Glucose 97 mg/dL (70-110); Magnesium 1.8 mg/dL (1.5-2.4); Phosphorus 3.1 mg/dL (2.4-5.1); Potassium 4.5 mmol/L (3.5-5.5); Sodium 141 mmol/L (135-145); Total Bilirubin 0.4 mg/dL (0.3-1.2); Total Protein 7.3 g/dL (6.2-8.2)
== END | disposition home or self-care (01) ==
LOC: LABWHC1 08:33
PROVIDERS: ATTEND Emergency Medicine
DX: D64.9 Anemia, unspecified (principal)
CPT/HCPCS: 36415; 80053; 83735; 84100; 85027